=== PATIENT | male | born 1940 | race Caucasian/White ===

== ENCOUNTER 2025-03-07 10:17 | Emergency (ER) | payer OTHER ==
[~2025-03-07] VITALS: Ht 167.6 cm; Wt 68.0 kg
[2025-03-07 10:28] VITALS: O2SAT 100
[2025-03-07] MEDS ORDERED: BACITRACIN ZINC OINT UDPKT TOP ONE (10:45)
[2025-03-07] MEDS ORDERED: LIDOCAINE HCL/EPINEPHRINE 1%-EPI 1:100,000 20ML VIAL INFIL ONE (10:45)
[2025-03-07 13:49] VITALS: BP 134/70; PULSE 89; RESP 18; TEMP 36.7; O2SAT 98
== END 2025-03-07 13:49 | disposition home or self-care (01) ==
LOC: ER 10:17
DX: S01.81XA Laceration without foreign body of other part of head, initial encounter (principal); E78.00 Pure hypercholesterolemia, unspecified; E11.9 Type 2 diabetes mellitus without complications; F03.90 Unspecified dementia, unspecified severity, without behavioral disturbance, psychotic disturbance, mood disturbance, and anxiety; W01.0XXA Fall on same level from slipping, tripping and stumbling without subsequent striking against object, initial encounter; Y93.89 Activity, other specified; Y92.89 Other specified places as the place of occurrence of the external cause; Y99.8 Other external cause status
CPT/HCPCS: 99284; 70450; 72125; 12013; J2004

== ENCOUNTER 2025-06-20 12:13 | Inpatient (IN) | payer OTHER, MEDICARE ==
[~2025-06-20] VITALS: Ht 172.7 cm; Wt 57.6 kg
[2025-06-20 02:35] VITALS: BP 136/67; PULSE 85; RESP 16; TEMP 36.3624
[2025-06-20 12:39] VITALS: O2SAT 99
[2025-06-20 13:24] LABS: BASOPHILS % 0.1 % (0.0-2.0); EOSINOPHILS % 0.3 % (0.0-5.0); HEMATOCRIT. 29.6 % (42.0-52.0); HEMOGLOBIN. 9.9 g/dL (14.0-18.0); LYMPHOCYTES % 9.6 % (20.0-50.0); MEAN PLATELET VOLUME 8.3 fl (7.4-10.4); MONOCYTES % 12.3 % (2.0-8.0); NEUTROPHILS % 77.7 % (40.0-76.0); PLATELET 331 x1000/uL (130-400); RED BLOOD CELL COUNT 3.19 mill/uL (4.7-6.1); RED CELL DISTRIBUTION WIDTH 14.7 % (11.6-14.6)
[2025-06-20] MEDS: CEFTRIAXONE 1GM/50ML 50 ML IV ONE (13:39)
[2025-06-20] MEDS: SODIUM CHLORIDE 0.9% (SEPSIS BOLUS) IV ONE (13:40)
[2025-06-20 13:43] LABS: CREATININE 1.2 mg/dL (0.6-1.3); ETHANOL BLOOD < 10 mg/dL (<10); TROPONIN I HIGH SENSITIVITY 40 ng/L (3.0-53); UREA NITROGEN BLOOD 18 mg/dL (9-23)
[2025-06-20 13:45] LABS: ASPARTATE AMINOTRANSFERASE 74 IU/L (<34); BILIRUBIN DIRECT 0.3 mg/dL (<=3.0); BILIRUBIN TOTAL 0.9 mg/dL (0.1-1.0); PROTEIN TOTAL 6.6 g/dL (6.0-8.3)
[2025-06-20 16:15] LABS: CLARITY URINE CLOUDY (CLEAR); COLOR URINE YELLOW (YELLOW); GLUCOSE URINE NEGATIVE (NEGATIVE); KETONES URINE TRACE (NEGATIVE); LEUKOCYTE ESTERASE URINE 2+ (NEGATIVE); NITRITE URINE POSITIVE (NEGATIVE); OCCULT BLOOD URINE 2+ (NEGATIVE); PH URINE 5.5 (4.5-8.0); PROTEIN URINE 1+ (NEGATIVE); SPECIFIC GRAVITY URINE 1.008 (1.005-1.030); UROBILINOGEN URINE 0.2 E.U./dL (0.2-1.0)
[2025-06-20 16:25] LABS: *AMPHETAMINES SCREEN URINE NEGATIVE (NEGATIVE); *BARBITURATES SCREEN URINE NEGATIVE (NEGATIVE); *BENZODIAZEPINES SCREEN URINE NEGATIVE (NEGATIVE); *COCAINE SCREEN URINE NEGATIVE (NEGATIVE); METHADONE URINE SCREEN NEGATIVE (NEGATIVE)
[2025-06-20 16:26] LABS: CANNABINOID URINE SCREEN NEGATIVE (NEGATIVE); ECSTASY MDMA SCREEN URINE NEGATIVE (NEGATIVE); OPIATES URINE SCREEN NEGATIVE (NEGATIVE); PHENCYCLIDINE URINE SCREEN NEGATIVE (NEGATIVE)
[2025-06-20 16:28] LABS: BACTERIA URINE TRACE; SQUAMOUS EPITHELIAL CELL URINE 1+ /lpf (RARE/1+)
[2025-06-20 20:40] VITALS: BP 136/67; PULSE 85; RESP 16; TEMP 36.2; O2SAT 98
[2025-06-20] MEDS ORDERED: HALOPERIDOL 5MG TABLET PO SCH (21:00)
[2025-06-20] MEDS ORDERED: CLONIDINE 0.1MG TABLET PO PRN (21:45)
[2025-06-20] MEDS ORDERED: DEXTROSE 50% WATER 50ML SYRINGE IV PRN (21:45)
[2025-06-20] MEDS ORDERED: ACETAMINOPHEN 325MG TABLET PO PRN (21:45)
[2025-06-20] MEDS ORDERED: ONDANSETRON HCL 4MG/2ML INJ IV PRN (21:45)
[2025-06-20] MEDS ORDERED: MAGNESIUM/ALUMINUM HYDROXIDE/SIMETHICONE 30ML UDC PO PRN (21:45)
[2025-06-20] MEDS ORDERED: IPRATROPIUM/ALBUTEROL 0.5-3(2.5)MG/3ML NEB HHN PRN (21:45)
[2025-06-20] MEDS: KCL 20MEQ/100ML PREMIX 100 ML IV SCH (22:55)
[2025-06-20] MEDS: SODIUM CHLORIDE 0.9% 1,000 ML IV SCH (22:56)
[2025-06-21] VITALS: BP_SYST 136; BP_SYST 143; BP_DIAS 64; BP_DIAS 67; PULSE 85; PULSE 86; RESP 16; RESP 18; TEMP 36.2; TEMP 36.3; O2SAT 98; O2SAT 99
[2025-06-21] MEDS ORDERED: DEXTROSE 50% WATER 50ML SYRINGE IV PRN (00:30)
[2025-06-21 02:08] LABS: TROPONIN I HIGH SENSITIVITY 57 ng/L (3.0-53)
[2025-06-21] MEDS: KCL 20MEQ/100ML PREMIX 100 ML IV SCH (03:30)
[2025-06-21 04:00] VITALS: BP 130/66; PULSE 83; RESP 20; TEMP 36.4; O2SAT 98
[2025-06-21] MEDS: BLOOD SUGAR DIAGNOSTIC STRIP TEST SCH (07:09)
[2025-06-21 07:10] LABS: HEMATOCRIT. 29.3 % (42.0-52.0); HEMOGLOBIN. 10.1 g/dL (14.0-18.0); MEAN PLATELET VOLUME 8.5 fl (7.4-10.4); PLATELET 331 x1000/uL (130-400); RED BLOOD CELL COUNT 3.22 mill/uL (4.7-6.1); RED CELL DISTRIBUTION WIDTH 15.2 % (11.6-14.6)
[2025-06-21] MEDS: INSULIN LISPRO 100 UNITS/ML SUBCUT SCH (07:10)
[2025-06-21 07:30] LABS: T4 FREE 1.30 ng/dL (0.89-1.76)
[2025-06-21 07:32] LABS: CREATININE 0.8 mg/dL (0.6-1.3); TRIGLYCERIDE 86 mg/dL (0-150); UREA NITROGEN BLOOD 10 mg/dL (9-23)
[2025-06-21 07:33] LABS: LDL CHOLESTEROL 42 mg/dL (5-100)
[2025-06-21 07:44] LABS: FOLIC ACID (FOLATE) SERUM 3.20 ng/mL (>5.38)
[2025-06-21 08:00] VITALS: BP 144/69; PULSE 84; RESP 18; TEMP 36.6; O2SAT 98
[2025-06-21] MEDS: FAMOTIDINE 20MG/2ML VIAL IV SCH (08:31)
[2025-06-21 08:33] LABS: VITAMIN B12 SERUM > 2000 pg/mL (211-911)
[2025-06-21 12:00] VITALS: BP 147/65; PULSE 80; RESP 18; TEMP 36.5; O2SAT 100
[2025-06-21 12:24] LABS: TROPONIN I HIGH SENSITIVITY 61 ng/L (3.0-53)
[2025-06-21] MEDS: CEFTRIAXONE 1GM/50ML 50 ML IV SCH (13:04)
[2025-06-21] MEDS: POTASSIUM CHLORIDE 20MEQ/PACKET PO NR (13:04)
[2025-06-21 13:52] LABS: BAND% 16.0 % (1.0-6.0); EOSINOPHILS % MANUAL 2.0 % (0.0-5.0); LYMPHOCYTES % MANUAL 5.0 % (20.0-50.0); MONOCYTES % MANUAL 7.0 % (2.0-8.0); NEUTROPHILS % MANUAL 70.0 % (45.0-75.0)
[2025-06-21 13:53] LABS: PLATELET ESTIMATE NORMAL
[2025-06-21 16:00] VITALS: BP 135/66; PULSE 18; RESP 18; TEMP 36.6; O2SAT 97
[2025-06-21 20:00] VITALS: BP 141/60; PULSE 66; RESP 18; TEMP 36.7; O2SAT 98
[2025-06-22] VITALS: BP 152/64; PULSE 67; RESP 21; TEMP 36.2; O2SAT 100
[2025-06-22 04:00] VITALS: BP 144/67; PULSE 72; RESP 18; TEMP 36; O2SAT 99
[2025-06-22 08:00] VITALS: BP 154/70; PULSE 65; RESP 18; TEMP 36.6; O2SAT 97
[2025-06-22 12:00] VITALS: BP 157/59; PULSE 67; RESP 18; TEMP 36.7; O2SAT 96
[2025-06-22] MEDS: ENOXAPARIN 40MG/0.4ML SYR SUBCUT SCH (13:37)
[2025-06-22 16:00] VITALS: BP 149/68; PULSE 71; RESP 18; TEMP 36.5; O2SAT 97
[2025-06-22 18:05] VITALS: BP 152/68; PULSE 71; RESP 18; TEMP 97.7
[2025-06-23] MEDS ORDERED: ASCORBIC ACID 500 MG TABLET PO SCH (09:00)
[2025-06-23] MEDS ORDERED: MULTIVITAMINS,THER W-MINERALS TABLET PO SCH (09:00)
== END 2025-06-22 18:45 | disposition short-term general hospital (02) | DRG 871 ==
LOC: ER 12:13 → CANBEDREQ 16:26 → 8WST 16:28 → ENRESERV 20:18
PROVIDERS: ADMIT Internal Medicine; ATTEND Internal Medicine
DX: A41.9 Sepsis, unspecified organism (principal); G92.8 Other toxic encephalopathy; L89.313 Pressure ulcer of right buttock, stage 3; L89.153 Pressure ulcer of sacral region, stage 3; N39.0 Urinary tract infection, site not specified; I50.32 Chronic diastolic (congestive) heart failure; M62.82 Rhabdomyolysis; F03.90 Unspecified dementia, unspecified severity, without behavioral disturbance, psychotic disturbance, mood disturbance, and anxiety; I11.0 Hypertensive heart disease with heart failure; E11.9 Type 2 diabetes mellitus without complications; E87.6 Hypokalemia; E78.00 Pure hypercholesterolemia, unspecified; N40.0 Benign prostatic hyperplasia without lower urinary tract symptoms; D64.9 Anemia, unspecified; Z91.199 Patient's noncompliance with other medical treatment and regimen due to unspecified reason
CPT/HCPCS: 36415; 71045; 80048; 80061; 80076; 80305; 80320; 81003; 82140; 82550; 82607; 82728; 82746; 82962; 83036; 83540; 83550; 83605; 83735; 84132; 84439; 84443; 84484; 85025; 93005; 96365; 99291; J0696; J1308; J1650; J1815; J3480; J7030; G0480